=== PATIENT | female | born 1990 | race Caucasian/White ===

== ENCOUNTER 2017-12-28 21:46 | Emergency (ER) | payer MEDICAID ==
[2017-12-28] MEDS ORDERED: KETOROLAC 30 MG/1 ML SDV IVP ONE (22:09)
[2017-12-28] MEDS ORDERED: NS 1,000 ML IV ONE ×2 (22:09→23:07)
[2017-12-28] MEDS ORDERED: ONDANSETRON DISINTEGRATING 4 MG TAB PO ONE (22:09)
[2017-12-28] MEDS ORDERED: FAMOTIDINE 20 MG/NACL 50 ML IV ONE (22:09)
--- NOTE | 2017-12-28 22:09 | EDPHY ---
H & P Stated Complaint: ABD pain n/v Time Seen by Provider: 12/28/17 21:59 HPI/ROS: HPI The patient presents with crampy mid abdominal pain which has been present since about 3:00 p.m. Today. It is intermittent and getting progressively worse. She reports both a cramping and squeezing sensation that radiates throughout her abdomen which is moderate in severity. Several hours ago she began to have nausea and vomiting with this which have been persistent and she has not been able to take anything by mouth including her usual medications and water. Her last menstrual period was about 4 weeks ago so she wondered if she could be having pain from menstrual cramps, however this pain seems higher in her abdomen. She has had normal bowel movements. She has not had any fevers or chills. She denies any sick contacts. She has not had any vaginal bleeding. She has no prior history of similar pain.. REVIEW OF SYSTEMS Constitutional: No fever, no chills. Eyes: No discharge. ENT: No sore throat. Cardiovascular: No chest pain, no palpitations. Respiratory: No cough, no shortness of breath. Gastrointestinal: See HPI Genitourinary: No hematuria. Musculoskeletal: No back pain. Skin: No rashes. Neurological: No headache. PMHx: Healthy, no prior abdominal operations Soc Hx: On [place] for smoking sensation PHYSICAL General Appearance: Alert, no distress Eyes: Pupils equal and round no pallor or injection ENT, Mouth: Mucous membranes moist Respiratory: There are no retractions, lungs are clear to auscultation Cardiovascular: Regular rate and rhythm Gastrointestinal: Abdomen is soft and non-tender, no masses, bowel sounds normal Neurological: A&O, moves all extremities Skin: Warm and dry, no rashes Musculoskeletal: Neck is supple non tender Extremities: symmetrical, full range of motion Psychiatric: Patient is oriented X 3, there is no agitation Source: Patient Exam Limitations: No limitations - Personal History LMP (Females 10-55): 22-28 Days Ago Current Tetanus/Diphtheria Vaccine: Yes Current Tetanus Diphtheria and Acellular Pertussis (TDAP): Yes - Medical/Surgical History Hx Asthma: No Hx Chronic Respiratory Disease: No Hx Diabetes: No Hx Cardiac Disease: No Hx Renal Disease: No Hx Cirrhosis: No Hx Alcoholism: No Hx HIV/AIDS: No Hx Splenectomy or Spleen Trauma: No Other PMH: No pmh or psh, - Social History Smoking Status: Former smoker Constitutional: Initial Vital Signs Temperature (C) 36.7 C 12/28/17 21:49 Heart Rate 106 H 12/28/17 21:49 Respiratory Rate 18 12/28/17 21:49 Blood Pressure 104/72 12/28/17 21:49 O2 Delivery Mode Room Air Allergies/Adverse Reactions: amoxicillin [Amoxicillin] Allergy (Verified 12/28/17 21:48) Home Medications: Medication Instructions Recorded Unknown Control 07/11/16 Medical Decision Making - Diagnostics Imaging Results: CT abdomen pelvis with IV contrast is unremarkable for any acute pathology, discussed with Dr. Aj of Radiology. Differential Diagnosis: 27-year-old healthy female presents with abdominal pain which she describes as cramping which is worse in her upper abdomen and associated with nausea and vomiting. Her pain began today. On exam, she is well-appearing with normal vital signs. Abdominal exam is benign. Differential diagnosis includes menorrhagia, gastritis, gastroenteritis, enterocolitis. In the emergency department, IV was started and patient received 2 L of IV fluid. She was given Zofran, famotidine, Toradol for her pain without any improvement. Labs were checked and were normal except for leukocytosis. On reassessment she continued to have vomiting and intermittent abdominal pain. She was given a GI cocktail and Reglan. This helped her symptoms somewhat. She was re-examined and had diffuse abdominal tenderness to palpation now. Because of her ongoing symptoms, CT scan of the abdomen was obtained and was unremarkable. Eventually, her symptoms subsided and she was able to rest. I discussed her test results with her. I feel she may be suffering from a viral gastroenteritis. I doubt any serious pathology at this time. She will be discharged home, if her symptoms continue I will have her follow up with her primary care doctor and I have also referred her to Gastroenterology. She is in agreement with this plan. - Data Points Laboratory Results: Laboratory Results 12/28/17 22:10 12/28/17 22:10 12/28/17 12/28/17 12/28/17 23:30 22:10 22:10 WBC RBC Hgb Hct MCV MCH MCHC RDW Plt Count MPV Neut % (Auto) Lymph % (Auto) [place] % (Auto) Eos % (Auto) Baso % (Auto) Nucleat RBC Rel Count Absolute Neuts (auto) Absolute Lymphs (auto) Absolute Monos (auto) Absolute Eos (auto) Absolute Basos (auto) Absolute Nucleated RBC Immature Gran % Immature Gran # Sodium 142 mEq/L mEq/L (135-145) Potassium 4.1 mEq/L mEq/L (3.5-5.2) Chloride 107 mEq/L mEq/L (97-110) Carbon Dioxide 23 mEq/l mEq/l (22-31) Anion Gap 12 mEq/L mEq/L (8-16) BUN 10 mg/dL mg/dL (7-23) Creatinine 0.6 mg/dL mg/dL (0.6-1.0) Estimated GFR > 60 Glucose 81 mg/dL mg/dL (70-100) Calcium 8.9 mg/dL mg/dL (8.5-10.4) Total Bilirubin 0.8 mg/dL mg/dL (0.1-1.4) Conjugated Bilirubin 0.4 mg/dL mg/dL (0.0-0.5) Unconjugated Bilirubin 0.4 mg/dL mg/dL (0.0-1.1) AST 14 IU/L IU/L (14-46) ALT 31 IU/L IU/L (9-52) Alkaline Phosphatase 59 IU/L IU/L (38-126) Total Protein 7.0 g/dL g/dL (6.3-8.2) Albumin 4.3 g/dL g/dL (3.5-5.0) Lipase 84 IU/L IU/L (23-300) Beta HCG, Qual NEGATIVE Urine Color YELLOW Urine Appearance HAZY Urine pH 5.0 (5.0-7.5) Ur Specific [place] 1.024 (1.002-1.030) Urine Protein NEGATIVE (NEGATIVE) Urine Ketones NEGATIVE (NEGATIVE) Urine Blood 1+ H (NEGATIVE) Urine Nitrate NEGATIVE (NEGATIVE) Urine Bilirubin NEGATIVE (NEGATIVE) Urine Urobilinogen NEGATIVE EU EU (0.2-1.0) Ur Leukocyte Esterase NEGATIVE (NEGATIVE) Urine RBC 3-5 /hpf H /hpf (0-3) Urine WBC 1-3 /hpf /hpf (0-3) Ur Epithelial Cells 2+ /lpf H /lpf (NONE-1+) Urine Mucus 2+ /lpf H /lpf (NONE-1+) Urine Glucose NEGATIVE (NEGATIVE) 12/28/17 22:10 WBC 14.67 10^3/uL H 10^3/uL (3.80-9.50) RBC 4.45 10^6/uL 10^6/uL (4.18-5.33) Hgb 13.9 g/dL g/dL (12.6-16.3) Hct 40.5 % % (38.0-47.0) MCV 91.0 fL fL (81.5-99.8) MCH 31.2 pg pg (27.9-34.1) MCHC 34.3 g/dL g/dL (32.4-36.7) RDW 13.8 % % (11.5-15.2) Plt Count 262 10^3/uL 10^3/uL (150-400) MPV 9.5 fL fL (8.7-11.7) Neut % (Auto) 85.3 % H % (39.3-74.2) Lymph % (Auto) 6.2 % L % (15.0-45.0) [place] % (Auto) 7.2 % % (4.5-13.0) Eos % (Auto) 0.7 % % (0.6-7.6) Baso % (Auto) 0.3 % % (0.3-1.7) Nucleat RBC Rel Count 0.0 % % (0.0-0.2) Absolute Neuts (auto) 12.52 10^3/uL H 10^3/uL (1.70-6.50) Absolute Lymphs (auto) 0.91 10^3/uL L 10^3/uL (1.00-3.00) Absolute Monos (auto) 1.05 10^3/uL H 10^3/uL (0.30-0.80) Absolute Eos (auto) 0.10 10^3/uL 10^3/uL (0.03-0.40) Absolute Basos (auto) 0.04 10^3/uL 10^3/uL (0.02-0.10) Absolute Nucleated RBC 0.00 10^3/uL 10^3/uL (0-0.01) Immature Gran % 0.3 % % (0.0-1.1) Immature Gran # 0.05 10^3/uL 10^3/uL (0.00-0.10) Sodium Potassium Chloride Carbon Dioxide Anion Gap BUN Creatinine Estimated GFR Glucose Calcium Total Bilirubin Conjugated Bilirubin Unconjugated Bilirubin AST ALT Alkaline Phosphatase Total Protein Albumin Lipase Beta HCG, Qual Urine Color Urine Appearance Urine pH Ur Specific [place] Urine Protein Urine Ketones Urine Blood Urine Nitrate Urine Bilirubin Urine Urobilinogen Ur Leukocyte Esterase Urine RBC Urine WBC Ur Epithelial Cells Urine Mucus Urine Glucose Medications Given: Discontinued Medications Al Hydroxide/Mg Hydroxide (Maalox Susp) 30 ml PO ONCE ONE Stop: 12/28/17 23:19 Last Admin: 12/28/17 23:23 Dose: 30 ml Hyoscyamine Sulfate (Levsin, Hyomax-Sl) 0.25 mg PO ONCE ONE Stop: 12/28/17 23:19 Last Admin: 12/28/17 23:23 Dose: 0.25 mg Sodium Chloride (Ns) 1,000 mls @ 0 mls/hr IV EDNOW ONE; Wide Open PRN Reason: Protocol Stop: 12/28/17 22:10 Last Admin: 12/28/17 22:13 Dose: 1,000 mls Famotidine/Sodium Chloride (Pepcid 20 Mg (Premix)) 50 mls @ 200 mls/hr IV EDNOW ONE Stop: 12/28/17 22:23 Last Admin: 12/28/17 22:13 Dose: 50 mls Sodium Chloride (Ns) 1,000 mls @ 0 mls/hr IV ONCE ONE; Wide Open PRN Reason: Protocol Stop: 12/28/17 23:08 Last Admin: 12/28/17 23:08 Dose: 1,000 mls Ketorolac Tromethamine (Toradol) 15 mg IVP EDNOW ONE Stop: 12/28/17 22:10 Last Admin: 12/28/17 22:13 Dose: 15 mg Lidocaine (Lidocaine 2% Viscous) 15 ml PO ONCE ONE Stop: 12/28/17 23:19 Last Admin: 12/28/17 23:23 Dose: 15 ml Metoclopramide HCl (Reglan Injection) 10 mg IVP EDNOW ONE Stop: 12/29/17 01:59 Last Admin: 12/29/17 02:00 Dose: 10 mg Ondansetron HCl (Zofran Odt) 4 mg PO EDNOW ONE Stop: 12/28/17 22:10 Last Admin: 12/28/17 22:13 Dose: 4 mg Ondansetron HCl (Zofran) 4 mg IVP EDNOW ONE Stop: 12/29/17 01:15 Last Admin: 12/29/17 01:21 Dose: 4 mg Ondansetron HCl (Zofran Odt 4 Mg Prepack#2) 1 btl TAKEHOME EDNOW ONE Stop: 12/29/17 03:55 Last Admin: 12/29/17 03:57 Dose: 1 btl Departure - Departure Disposition: Home, Routine, Self-Care Clinical Impression: Abdominal pain Qualifiers: Abdominal location: generalized Qualified Code(s): R10.84 - Generalized abdominal pain Vomiting Qualifiers: Vomiting type: unspecified Vomiting Intractability: non-intractable Nausea presence: with nausea Qualified Code(s): R11.2 - Nausea with vomiting, unspecified Condition: Good Instructions: Acute Abdominal Pain (ED) Additional Instructions: Please make sure to drink plenty of fluids. You can take the medicine as needed. Return to the emergency department if your worse in any way. If your symptoms continue, I would recommend you follow up with the safe and vault mechanic I have listed below or your primary care doctor. Referrals: Letitia Vera MD [Primary Care Provider] - As per Instructions Jason Tierney MD [Medical Doctor] - As per Instructions
[2017-12-28 22:20] LABS: PLATELET COUNT 262 10^3/uL (150-400)
[2017-12-28] MEDS ORDERED: LIDOCAINE 2% VISCOUS 15 ML UDCUP PO ONE (23:18)
[2017-12-28] MEDS ORDERED: HYOSCYAMINE SULFATE 0.125 MG TAB PO ONE (23:18)
[2017-12-28] MEDS ORDERED: MAG HYDROX/AL HYDROX/SIMETH 30 ML UDCUP PO ONE (23:18)
[2017-12-28] MEDS ORDERED: MAG HYDROX/AL HYDROX/SIMETH 30 ML UDCUP ONE (23:19)
[2017-12-29] MEDS ORDERED: ONDANSETRON 4 MG/2 ML VIAL ONE (01:04)
[2017-12-29] MEDS ORDERED: ONDANSETRON 4 MG/2 ML VIAL IVP ONE (01:14)
[2017-12-29] MEDS ORDERED: METOCLOPRAMIDE 10 MG/2 ML VIAL ONE (01:55)
[2017-12-29] MEDS ORDERED: METOCLOPRAMIDE 10 MG/2 ML VIAL IVP ONE (01:58)
[2017-12-29] MEDS ORDERED: IOPAMIDOL (ISOVUE-300) 100 ML BTL ONE (02:03)
[2017-12-29 03:53] VITALS: BP 107/67; PULSE 98; RESP 18; TEMP 99; O2SAT 94
[2017-12-29] MEDS ORDERED: ONDANSETRON 4MG PREPACK#2 BTL TAKEHOME ONE (03:54)
== END 2017-12-29 04:11 | disposition home or self-care (01) ==
DX: R10.84 Generalized abdominal pain (principal); R11.2 Nausea with vomiting, unspecified; E86.9 Volume depletion, unspecified; Z87.891 Personal history of nicotine dependence
CPT/HCPCS: 96374; J1885; J2405; J2765; Q9967